=== PATIENT | female | born 1970 | race Caucasian/White ===

== ENCOUNTER 2020-09-06 10:51 | Emergency (ER) | payer OTHER ==
[~2020-09-06] VITALS: Ht 157.5 cm; Wt 84.4 kg
[2020-09-06 10:56] VITALS: BP 158/89
--- NOTE | 2020-09-06 11:10 | NUR ---
Patient ambulated to bed 3. RN evaluating the patient at bedside.
--- NOTE | 2020-09-06 11:21 | NUR ---
Dr. Jaime is evaluating the patient at bedside.
[2020-09-06] MEDS ORDERED: KETOROLAC 60 MG/2 ML VIAL IM ONE (11:25)
[2020-09-06] MEDS ORDERED: ACYCLOVIR 200 MG CAP PO ONE (11:25)
[2020-09-06] MEDS ORDERED: predniSONE 20 MG TAB PO ONE (11:25)
--- NOTE | 2020-09-06 11:25 | NUR ---
50 y/o F brought in from home with c/c left shoulder/elbow/wrist pain. Patient A&Ox4, ambulatory and reports left arm pain x 5 days with rash to left forearm. Patient states pain 6/10, burning/constant, radiating from left shoulder down to elbow and wrist. Patient denies N/V/D, dizziness, fatigue, SOB, abdominal/back pain. Patient denies any mediications prior to arrival. VSS; respirations even/unlabored. Skin warm/dry. Bed locked in lowest position, side rails x 1, call light in reach. PMH: Denies Meds: Robaxin Allergies: Acetaminophen, Hydrocodone Sx: Denies
--- NOTE | 2020-09-06 11:50 | NUR ---
Patient states positive relief after Toradol. States pain 0/10 at this time. All pt needs met.
[2020-09-06] MEDS ORDERED: PRED20TA5 PO (12:05)
[2020-09-06] MEDS ORDERED: ACYC-278 PO (12:05)
[2020-09-06] MEDS ORDERED: NAPR-54 PO (12:06)
[2020-09-06 12:19] VITALS: BP 158/89
--- NOTE | 2020-09-06 12:19 | NUR ---
Patient discharged with v/s stable. Written and verbal after care instructions given and explained. Patient alert, oriented and verbalized understanding of instructions. Ambulatory with steady gait. All questions addressed prior to discharge. ID band removed. Patient advised to follow up with PMD. Rx of ACYCLOVIR, NAPROSYN, DELTASONE given. Patient educated on indication of medication including possible reaction and side effects. Opportunity to ask questions provided and answered.
== END 2020-09-06 12:19 | disposition home or self-care (01) ==
LOC: MED 10:51
DX: B02.9 Zoster without complications (principal); Z88.5 Allergy status to narcotic agent; Z79.899 Other long term (current) drug therapy
CPT/HCPCS: 96372; 99283; J1885; J7512

== ENCOUNTER 2020-09-21 11:35 | Emergency (ER) | payer OTHER ==
[~2020-09-21] VITALS: Ht 157.5 cm; Wt 2.7 kg
[~2020-09-21 11:35] MED LIST: ACYC-278 PO; NAPR-54 PO; PRED20TA5 PO
[2020-09-21 11:44] VITALS: BP 159/98
--- NOTE | 2020-09-21 12:00 | NUR ---
73 Y/O FEMALE C/O RIGHT HAND PAIN 09/16 DESCRIBES ACHING/SHARP NON-RADIATING [id number] S/P SLCING IN BETWEEN THUMB AND RIGHT INDEX WHILE CUTTING FOOD. NO ACTIVE BLEEDING NOTED, SMALL 2INCH SUPERFICIAL LAC. PT DENIES FEVER/CHILLS, DENIES N/V/D. DENIES PMH NKA
--- NOTE | 2020-09-21 12:14 | NUR ---
DG PRABHAKAR AT BEDSIDE EXAMINING PATIENT
[2020-09-21] MEDS ORDERED: LIDOCAINE MPF 1% 10 MG/ML VIAL INJ ONE (12:20)
[2020-09-21] MEDS ORDERED: KETOROLAC 30 MG/ML VIAL IM ONE (12:20)
[2020-09-21] MEDS ORDERED: IBUP-1842 PO (12:54)
[2020-09-21] MEDS ORDERED: BACI1PAC6 TP (12:54)
--- NOTE | 2020-09-21 13:01 | NUR ---
applied dressing to right hand without any issues
[2020-09-21 13:09] VITALS: BP 159/98
--- NOTE | 2020-09-21 13:10 | NUR ---
Patient discharged with v/s stable. Written and verbal after care instructions given FOR [facility] C[facility] and explained. Patient alert, oriented and verbalized understanding of instructions. Ambulatory with steady gait. All questions addressed prior to discharge. ID band removed. Patient advised to follow up with PMD. Rx of BACITRACIN 5000UNITS TOPICAL TO AFFECTED AREA BID, AND IBUPROFEN 400MG PO QID PRN PAIN given. Patient educated on indication of medication including possible reaction and side effects. Opportunity to ask questions provided and answered.
== END 2020-09-21 13:10 | disposition home or self-care (01) ==
LOC: MED 11:35
DX: S61.411A Laceration without foreign body of right hand, initial encounter (principal); Z88.6 Allergy status to analgesic agent; Z88.5 Allergy status to narcotic agent; Z79.899 Other long term (current) drug therapy; W26.8XXA Contact with other sharp object(s), not elsewhere classified, initial encounter; Y93.89 Activity, other specified; Y92.89 Other specified places as the place of occurrence of the external cause; Y99.8 Other external cause status
CPT/HCPCS: 12002; 90471; 90715; 96372; 99284; J1885; J2001

== ENCOUNTER 2020-09-23 10:18 | Emergency (ER) | payer OTHER ==
[~2020-09-23] VITALS: Ht 157.5 cm; Wt 83.9 kg
[~2020-09-23 10:18] MED LIST changes: +BACI1PAC6 TP; +IBUP-1842 PO
[2020-09-23 10:21] VITALS: BP 134/76
--- NOTE | 2020-09-23 10:25 | NUR ---
PT AMBULATED TO BED 7.
[2020-09-23] MEDS ORDERED: BACITRACIN OINT 500 UNITS/GM PKT TP ONE (10:33)
--- NOTE | 2020-09-23 10:39 | NUR ---
50 YO F BIB SELF FOR RECHECK. LAC WOUND ON RIGHT HAND SUTURED ON 09/21/20. DENIES PAIN AT THIS TIME. ERMD MADE AWARE OF PT STATUS. PMH ALLERGY: VICODINE
--- NOTE | 2020-09-23 10:41 | NUR ---
PT'S RIGHT HAND WAS DRESSED WITH BACITRACIN, NONADHERENT DRESSING, AND GAUZE PAD. ERMD NOTIFIED
[2020-09-23 10:42] VITALS: BP 134/76
--- NOTE | 2020-09-23 10:42 | NUR ---
Patient discharged with v/s stable. Written and verbal after care instructions given and explained. Patient verbalized understanding. Ambulatory with steady gait. All questions addressed prior to discharge. Advised to follow up with PMD.
== END 2020-09-23 10:42 | disposition home or self-care (01) ==
LOC: MED 10:18
DX: S81.811D Laceration without foreign body, right lower leg, subsequent encounter (principal); Z88.6 Allergy status to analgesic agent; Z88.5 Allergy status to narcotic agent; Z48.00 Encounter for change or removal of nonsurgical wound dressing; Z79.899 Other long term (current) drug therapy; X58.XXXD Exposure to other specified factors, subsequent encounter
CPT/HCPCS: 99282